=== PATIENT | female | born 1960 | race Caucasian/White ===

== ENCOUNTER 2020-01-10 11:12 | Outpatient (REF) | payer BC, SELFPAY ==
--- NOTE | 2020-01-09 10:30 | PAPFT_PTH ---
PATIENT: Neetu Chino LOC: [facility] U#:[id number] AGE/SX: 59/F ROOM: RE01/10/[address]: Laurie Henderson MD, DC : 1960 BED: DIS: 01/10/2020 SPEC #: [id number] RECD: 01/10/20 12:57 STATUS: DUC REGraciela #: [id number] KAYE: 01/09/20 10:[address]: Laurie Henderson DEPT: [facility] Cytology RECD BY: Margo Goodson Tissues: 1 - CX/ENDOCX FOR PAP SMEARS Procedures: PAP THIN PREP/UVM Screening HPV DNA PROBE Comments: [id number]
== END 2020-01-10 11:32 ==
LOC: LBN 11:12
PROVIDERS: PCP Family Medicine; Visit Provider Family Medicine
DX: Z11.51 Encounter for screening for human papillomavirus (HPV) (principal)
CPT/HCPCS: 88142; 87624

== ENCOUNTER 2023-02-28 04:44 | Outpatient (CLI) | payer BC, SELFPAY ==
[2023-02-28 12:14] LABS: HGB 13.7 g/dL (11.2-15.7); MCH 30.9 pg (27.0-33.0); MCHC 32.6 % (32.0-36.0); MCV 95 fL (80-95); MPV 10.7 fL (8.0-11.0); Platelet Count 227 10^3/uL (130-400); RBC 4.43 10^6/uL (3.93-5.22); RDW 13.8 % (11.7-14.6); RDW-SD 48.7 fL; WBC 4.13 10^3/uL (4.4-10.8)
[2023-02-28 12:43] LABS: ALT 56 U/L (14-59); AST 28 U/L (15-37); Albumin 3.5 g/dL (3.4-5.0); Alkaline Phosphatase 69 U/L (46-116); Anion Gap 11.4 mmol/L (3-11); BUN 17 mg/dL (7-18); Bilirubin, Total 0.4 mg/dL (0.2-1.0); CO2 25.6 mmol/L (21.0-32.0); CREATININE 0.7 mg/dL (0.55-1.02); Calcium 9.8 mg/dL (8.5-10.1); Calculated LDL 218 mg/dL (<100); Chloride 100 mmol/L (98-107); Cholesterol 294 mg/dL (<200); Estimated GFR 98.34 (mL/min/1.73m2); Glucose 97 mg/dL (74-106); HDL Cholesterol 52 mg/dL (40-60); Potassium 3.7 mmol/L (3.5-5.1); Sodium 137 mmol/L (136-145); TSH (W/Ref FT4) 3.45 uIU/mL (0.36-3.74); Total Protein 7.5 g/dL (6.4-8.2); Triglyceride 121 mg/dL (<150)
== END 2023-02-28 04:45 | disposition home or self-care (01) ==
LOC: LOS 04:44
PROVIDERS: PCP Family Medicine; Visit Provider Family Medicine
DX: Z00.00 Encounter for general adult medical examination without abnormal findings (principal)
CPT/HCPCS: 36415; 80053; 80061; 85027; 84443

== ENCOUNTER 2023-03-07 10:20 | Outpatient (REF) | payer BC, SELFPAY ==
--- NOTE | 2023-03-07 09:30 | PAPFT_PTH ---
PATIENT: Neetu Chino LOC: [facility] U#:[id number] AGE/SX: 62/F ROOM: RE03/07/[address]: Laurie Henderson MD, DC : 1960 BED: DIS: 03/07/2023 SPEC #: [id number] RECD: 03/07/23 18:03 STATUS: DUC REGraciela #: [id number] KAYE: 03/07/23 09:[address]: Laurie Henderson DEPT: [facility] Cytology RECD BY: Margo Goodson Tissues: 1 - CX/ENDOCX FOR PAP SMEARS Procedures: PAP THIN PREP/UVM Screening HPV DNA PROBE Comments: [id number]
== END 2023-03-07 10:21 | disposition home or self-care (01) ==
LOC: LBN 10:20
PROVIDERS: PCP Family Medicine; Visit Provider Family Medicine
DX: Z12.4 Encounter for screening for malignant neoplasm of cervix (principal); Z11.51 Encounter for screening for human papillomavirus (HPV)
CPT/HCPCS: 88142; 87624

== ENCOUNTER 2023-05-30 06:53 | Day surgery (SDC) | payer BC, SELFPAY ==
[2023-05-30 07:00] VITALS: BP 132/86; PULSE 79; RESP 18; TEMP 36.5; O2SAT 79
[2023-05-30] MEDS: Lactated Ringers 1,000 ML 80 ML IV (07:24)
--- NOTE | 2023-05-30 07:56 | W.ANESPRE ---
General Info Date of Service Date Performed: 05/30/23 Height: 5 ft 5.5 in Weight: 75.7 kg Body Mass Index (BMI): 27.3 Surgical Procedure: Operation Date: 05/30/23 08:20 Proposed Procedure Side Surgeon p Colonoscopy Kd Orona MD Actual Procedure Side Surgeon p Colonoscopy Not Applicable Kd Orona MD Pre-Op Diagnosis Post-Op Diagnosis SCREENING COLONOSCOPY Meds Allergies and Home Medications Allergies Allergy/AdvReac Type Severity Reaction Status Date / Time cat dander Allergy Mild Unverified 05/30/23 07:10 lactose Allergy Unknown Verified 05/30/23 07:10 prednisone Allergy Unknown Verified 05/30/23 07:10 DUST MITES Allergy Unknown Uncoded 05/30/23 07:10 Home Medication Medication Instructions Recorded fexofenadine 180 mg tablet 180 mg PO DAILY 09/28/22 (Jarod Allergy) bisacodyl 5 mg tablet,delayed 5 mg PO ONCE #4 tabs 05/12/23 release (Dulcolax (bisacodyl)) cetirizine 10 mg capsule (Zyrtec) 10 mg PO DAILY PRN 05/12/23 polyethylene glycol 3350 17 17 g PO ONCE #238 grams 05/12/23 gram/dose oral powder fluticasone propionate 50 2 spray intranasal DAILY #48 grams 05/20/23 mcg/actuation nasal spray,suspension Current Visit Medications: Current Medications Generic Name Dose Route Start Last Admin Trade Name Freq PRN Reason Stop Dose Admin Ringer's Solution 1,000 mls @ 80 mls/hr 05/30/23 06:00 05/30/23 07:24 IV 06/26/23 23:59 80 mls/hr INFUSION KEN Administration IV Miscellaneous Supplies 1 each 05/30/23 06:00 Iv Access IV 06/26/23 23:59 DIRECTED KEN Sodium Chloride 0 ml 05/30/23 06:00 Normal Saline Flush 10 Ml Syr IV 06/26/23 23:59 PRN PRN Sodium Chloride 0 ml 05/30/23 06:00 Normal Saline 10 Ml Vial IJ 06/26/23 23:59 DIRECTED PRN Sterile Water 0 ml 05/30/23 06:00 Water,Injection,Sterile 10 Ml Vial IJ 06/26/23 23:59 DIRECTED PRN PFSH Active Problems Active Problems: Problem Status Onset Code Allergy T78.40XA Encounter for screening colonoscopy Z12.11 Abnormal colonoscopy R93.3 COVID-19 U07.1 Hypertension I10 Annual physical exam Z00.00 Abnormal Pap smear of cervix R87.619 Annual physical exam 10/06/15 Z00.00 Bacterial vaginosis N76.0, B96.89 Breast fibrocystic disorder N60.19 Candidal vulvovaginitis B37.3 Elevated liver function tests 04 R94.5 Generalized abdominal pain R10.84 History of bilateral ligation of fallopian tubes Z98.51 History of tobacco use Z87.891 Hypokalemia E87.6 Increased body mass index R63.8 Ketonuria R82.4 Lipid disorder E78.9 Shoulder pain M25.519 Status post bunionectomy Z98.890 Status post cholecystectomy Z90.49 Vaginal odor 01/02/18 N89.8 Surgical History Surgical History Ligation of fallopian tube (~04/1986) Cholecystectomy 01/13/10 BUNIONECTOMY 03/1992; RIGHT Tobacco Smoking/Tobacco Use Status: Former Tobacco Use Passive smoking exposure: Yes (Ex also smoked) Second hand exposure: Yes Alcohol Alcohol Intake: current Alcohol intake frequency: a few times a week Alcohol type: beer and wine Substance Use Substance use: Never Substance use type: does not use Counseling provided: none Vital Signs and Lab Results Vital Signs Most Recent Vital Signs in EMR: Most Recent Vital Signs Temp Pulse Resp BP Pulse Ox 36.5 C 79 18 132/86 79 L 05/30/23 07:00 05/30/23 07:00 05/30/23 07:00 05/30/23 07:00 05/30/23 07:00 Lab Results Blood Type / Crossmatch: No Data to Display Complete Blood Count: No Data to Display Complete Metabolic Panel: No Data to Display Liver Function Panel: No Data to Display Coagulation Panel: No Data to Display Cardiac Panel: No Data to Display Arterial Blood Gas: No Data to Display Venous Blood Gas: No Data to Display Pancreas Panel: No Data to Display Thyroid Panel: No Data to Display Infectious Disease: No Data to Display Blood Cultures: No Data to Display Toxicology Panel: No Data to Display Anesthesia Assessment and Plan Anesthesia History Personal History: No History of Anesthesia Complications Family History: No Family History of Anesthesia Complications Exercise Tolerance Exercise Tolerance: Metabolic Equivalents>4 Pertinent Negatives Pertinent Negatives: No Symptoms of GERD, No Major Cardiovascular Symptoms or Complaints, No Major Pulmonary Symptoms or Complaints and No History of CVA/TIA Cardiac & Pulmonary Exam Cardiac Exam: Normal S1/S2 Heart Sounds Pulmonary Exam: Clear Bilateral Breath Sounds Implantable Cardiac Device Does patient have a Pacemaker or an ICD?: No Airway Exam Known Difficult Airway: No Mallampati Class: 1 Mouth Opening: Normal (> 3cm) Thyromental Distance: Greater than 3 cm Neck Range of Motion: Full ROM Neck Circumference: Normal Teeth Condition: Normal Dentition ASA Classification ASA Score: ASA 2 Emergency Case?: No NPO Status NPO Status: NPO Clears >2 hours, Solids >8 hours Anesthesia Plan Resuscitation Status: Full Code Anesthesia Technique: General Anesthesia Airway Planned: Natural Airway Monitors Used: Standard Monitors Preoperative Comments:: Patient with bilateral upper extremity hives. Probable allergic reaction to her cat which is slowly getting better (ceterizine, jarod, fluticasone for this all taken today). Dr. Orona aware and to proceed.
[2023-05-30 08:10] VITALS: BMI 27.3
--- NOTE | 2023-05-30 08:25 | BOWEL_PTH ---
PATIENT: Neetu Chino LOC: [facility] U#:[id number] AGE/SX: 62/F ROOM: RE05/30/[address]: Kd Orona : 1960 BED: DIS: 05/30/2023 SPEC #: [id number] RECD: 05/30/23 12:56 STATUS: DUC RE #: [id number] KAYE: 05/30/23 08:[address]: Kd Orona DEPT: Surgical Specimen RECD BY: Margo Goodson ENTERED: 05/30/23 12:57 SP TYPE: Bowel OTHR DR: Laurie Henderson MD, DC Tissues: 1 - BIOPSY BOWEL Procedures: GROSS AND MICRO LEVEL 4 Comments: [id number]
[2023-05-30 08:40] VITALS: BP 101/73; PULSE 82; RESP 16; TEMP 36.4; O2SAT 97
--- NOTE | 2023-05-30 08:40 | W.COLOREPORT ---
Date of service: 05/30/23 Time of Service: 08:40 Colonoscopy Report Procedure Description: PROCEDURES PERFORMED: 1. Colonoscopy with cold forceps polypectomy x1 PREOPERATIVE DIAGNOSIS: Surveillance colonoscopy POSTOPERATIVE DIAGNOSIS: Colon polyps, grade 1 internal hemorrhoids SURGEON: Rashmi Orona MD INDICATION for procedure: The patient is a 62-year-old woman due for surveillance colonoscopy. No symptoms. No family history of colon cancer. No findings on prior colonoscopies. FINDINGS: In the cecum a small 2-3 mm sessile polyp was removed with cold forceps technique directly next to the appendiceal orifice. No other polyps were seen. No diverticular disease noted. Minimal/grade 1 internal hemorrhoids noted. SURVEILLANCE interval/FOLLOW-UP: 3-10 years. If sessile serrated or villous histology then 3 years, otherwise 7 to 10 years. EBL: Minimal COMPLICATIONS: None QUALITY of prep: Excellent Procedure in detail: The patient gave written consent and was in agreement with the indications, the potential risks as well as the benefits of the procedure. He was taken to the endoscopy suite and laid in the left lateral decubitus position. A timeout was performed and anesthesia was administered which was tolerated well. I started the procedure. Digital rectal and visual examination was performed and grossly within normal limits. A well-lubricated flexible colonoscope was then introduced and passed without any notable difficulty all the way to the cecum identified by the ileocecal valve and the appendiceal orifice. The scope was then slowly withdrawn with the above-noted findings. The patient tolerated the procedure well and was taken to the PACU in hemodynamically stable condition.
--- NOTE | 2023-05-30 08:43 | W.PM.DSUDISC ---
Date of service: 05/30/23 Time of Service: 08:43 Discharge Plan Disposition Patient Disposition: Home Condition: Good Discharge Details Attending Provider: Kd Orona Primary Care Provider: Laurie Henderson Home Meds and New Rx's Prescriptions: No Action fexofenadine [Milly Allergy] 180 mg tablet 180 mg PO DAILY Zyrtec 10 mg capsule 10 mg PO DAILY PRN bisacodyl [Dulcolax (bisacodyl)] 5 mg tablet,delayed release (DR/EC) 5 mg PO ONCE Qty: 4 0RF Rx Instructions: Take per colonoscopy instructions provided by ordering providers office polyethylene glycol 3350 17 gram/dose powder 17 g PO ONCE Qty: 238 0RF Rx Instructions: Take per colonoscopy instructions provided by ordering providers office fluticasone propionate 50 mcg/actuation spray,suspension 2 spray intranasal DAILY Qty: 48 5RF Rx Instructions: administer into each nostril Discharge Instructions Additional Instructions: FINDINGS: Your colon and rectum appear very healthy. A small polyp was found today and removed. It is nothing to worry about. Your next colonoscopy will probably need to be done in 7 to 10 years also. Stand Alone Forms: Colonoscopy Post Instructions Activity:: Activity as Tolerated Diet:: As Tolerated
--- NOTE | 2023-05-30 08:46 | W.ANESPOSTOP ---
Postoperative Evaluation Date, Time and Location Date Performed: 05/30/23 Time Performed: 08:47 Patient Location: Day Surgery Unit Vital Signs Most Recent Imported Vital Signs: Most Recent Vital Signs Temp Pulse Resp BP Pulse Ox 36.5 C 79 18 132/86 79 L 05/30/23 07:00 05/30/23 07:00 05/30/23 07:00 05/30/23 07:00 05/30/23 07:00 Assessment Mental Status: Awake (Alert & Oriented to Patient Baseline) Airway and Respiratory Function: Patent airway with normal (patient baseline) respiratory exam Cardiovascular Function: Hemodynamically Stable Hydration Status: Adequately Hydrated Nausea & Vomiting: No Nausea or Vomiting Pain: Pt. Denies Any Pain Peripheral Nerve Block: Patient did not receive a nerve block
[2023-05-30 09:10] VITALS: BP 127/71; PULSE 65; RESP 16; TEMP 36.2; O2SAT 100
== END 2023-05-30 09:30 | disposition home or self-care (01) ==
PROVIDERS: PCP Family Medicine; Visit Provider Student in an Organized Health Care Education/Training Program
PROC: 0DJD8ZZ Inspection of Lower Intestinal Tract, Via Natural or Artificial Opening Endoscopic (ICD-10-PCS; CPT 45378; principal; 2023-05-30 08:15)
DX: Z12.11 Encounter for screening for malignant neoplasm of colon (principal); D12.0 Benign neoplasm of cecum; K64.0 First degree hemorrhoids; I10 Essential (primary) hypertension; Z87.891 Personal history of nicotine dependence
CPT/HCPCS: 45380; 00123; 88305; J2001

== ENCOUNTER 2024-07-22 19:17 | Observation (INO) | payer BC, SELFPAY ==
[2024-07-22] VITALS (42 sets, daily range): BP systolic 100–135; BP diastolic 68–90; PULSE 68–106; RESP 11–26; TEMP 36.1; O2SAT 91–100
--- NOTE | 2024-07-22 19:15 | RT.EKG_ITS ---
APPROVED REPORT Exam: Resting ECG Reason for Exam: syncope Patient Location: E HR:88 bpm ECG Measurements Heart Rate 88 AXIS RI 122 P 52 QRSd 85 QRS 37 QT 370 T 34 QTc 449 Conclusion Sinus rhythm...normal P axis, V-rate 60- [address] segment or T wave abnormalities to suggest occlusive AL minimal voltage lead III, repeat requested
--- NOTE | 2024-07-22 19:30 | RT.EKG_ITS ---
APPROVED REPORT Exam: Resting ECG Reason for Exam: syncope Patient Location: E HR:90 bpm ECG Measurements Heart Rate 90 AXIS RI 122 P 42 QRSd 85 QRS 37 QT 370 T 34 QTc 453 Conclusion Sinus rhythm...normal P axis, V-rate 60- [address] segment or T wave abnormalities to suggest occlusive [place] minimal voltage lead III, repeat requested
--- NOTE | 2024-07-22 19:30 | RT.EKG_ITS ---
APPROVED REPORT Exam: Resting ECG Reason for Exam: dizzy Patient Location: E HR:79 bpm ECG Measurements Heart Rate 79 AXIS MS 125 P 47 QRSd 91 QRS 49 QT 382 T 33 QTc 438 Conclusion Sinus rhythm...normal P axis, V-rate 60- [address] segment or T wave abnormalities to suggest occlusive [place]
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
[2024-07-22 20:27] LABS: Abs Immature Grans 0.02 10^3/uL (0.0-0.06); Absolute Basophil Count 0.04 10^3/uL (0.0-0.2); Absolute Eosinophil Count 0.09 10^3/uL (0.0-0.7); Absolute Lymphocyte Count 1.36 10^3/uL (1.2-3.4); Absolute Monocyte Count 0.49 10^3/uL (0.1-0.8); Absolute Neutrophil Count 4.03 10^3/uL (1.2-6.7); Basophils % 0.7 %; Eosinophils % 1.5 %; HGB 15.2 g/dL (11.2-15.7); Immature Grans % 0.3 %; Lymphocytes % 22.6 %; MCH 30.9 pg (27.0-33.0); MCHC 32.3 % (32.0-36.0); MCV 96 fL (80-95); MPV 10.3 fL (8.0-11.0); Monocytes % 8.1 %; Neutrophils % 66.8 %; Platelet Count 180 10^3/uL (130-400); RBC 4.92 10^6/uL (3.93-5.22); RDW 13.9 % (11.7-14.6); RDW-SD 49.6 fL; WBC 6.03 10^3/uL (4.4-10.8)
--- NOTE | 2024-07-22 20:28 | DI.CT_ITS ---
Exam(s) CT CHEST PE ABD PELVIS W EXAM: CT CHEST PE ABD PELVIS W CLINICAL HISTORY: syncope, elevated dimer. TECHNIQUE: Imaging Protocol: Axial CT angiography was performed with multi-slice acquisition and mu lti-planar and/or 3D reconstructions. Computer aided detection (CAD) was utilized. CONTRAST MATERIAL: Intravenous: Omnipaque 350 Contrast volume:75 ml COMPARISON: No exams were available for comparison FINDINGS: CHEST: Pulmonary Arteries: No evidence of filling defects to suggest pulmonary emboli. Tracheobronchial tree: Mild bronchial wall thickening, greatest at greater in the lower lobes. Mild left lower lobe view consist plugging. No bronchiectasis. Mediastinum and Shira: No dominant adenopathy or fluid collection. Pulmonary parenchyma: No consolidation or dominant measurable mass. Pleura: No effusion. No pneumothorax. Heart: The heart is notdilated. No coronary artery calcifications are seen. Aorta: Thoracic aorta non-dilated. Bones: Unremarkable for age. Tubes, Catheters, and Lines: None. Soft tissues: Unremarkable. ABDOMEN and PELVIS: Liver: Normal size. Normal density. No suspicious measurable mass. Portal, Superior Mesenteric, and Splenic Veins: Unremarkable. Gallbladder and Biliary Tract: Cholecystectomy. No biliary dilatation. Pancreas: Normal density, no abnormal calcifications or inflammatory process. Spleen: Normal. Adrenals: No masses seen. Kidneys: Normal size, contour and axis. No radiodense stones. No obstructive uropathy. No masses seen . Vasculature: Abdominal aorta non-dilated. Bowel: No obstruction or bowel wall thickening. The appendix is mildly dilated and contain several a ppendicoliths. Mild stranding in the surrounding fat consistent with acute appendicitis. No perfora tion or abscess. Peritoneal Cavity: No ascites, collection or mesenteric inflammatory response. Lymph Nodes: Within normal limits. Soft Tissues: Unremarkable. Bladder: Symmetric distention, no gross wall thickening. Reproductive Organs: Unremarkable as visualized. Bones: Unremarkable for age.. IMPRESSION: 1. No evidence of pulmonary embolism. Mild bronchial wall thickening. Mild mucous plugging in the le ft lower lobe. No infiltrates. 2. Acute appendicitis. The appendix contains several appendicoliths. RADIATION DOSE DELIVERED: Total DLP DATA REPOSITORY: All CT scans at this facility are submitted to the National Radiology Data Registry (NRDR) Dose Index Registry (DIR) with the [employer] (ACR). RADIATION OPTIMIZATION: All CT scans at this facility use at least one of these dose optimization te chniques: automated exposure control; mA and/or kV adjustment per patient size (includes targeted exa ms where dose is matched to clinical indication); or iterative reconstruction.
[2024-07-22] MEDS: Ondansetron 4 MG/2 ML VIAL IVP (20:29)
[2024-07-22 20:39] LABS: ALT 135 U/L (14-59); AST 81 U/L (15-37); Alkaline Phosphatase 70 U/L (46-116); Anion Gap 11.1 mmol/L (3-11); BUN 27 mg/dL (7-18); CO2 27.9 mmol/L (21.0-32.0); Calcium 9.1 mg/dL (8.5-10.1); Chloride 101 mmol/L (98-107); Estimated GFR 72.28 (mL/min/1.73m2); Glucose 106 mg/dL (74-106); Magnesium 1.9 mg/dL (1.8-2.4); NT-proBNP 37 pg/mL (<300); Potassium 3.5 mmol/L (3.5-5.1); Sodium 140 mmol/L (136-145); Total Protein 8.3 g/dL (6.4-8.2); Troponin I 6 ng/L (<or=51)
[2024-07-22] MEDS: Omnipaque 350 MG/ML 100 ML BTL IJ (20:44)
[2024-07-22] MEDS: Normal Saline - Diluent 50 ML VIAL IJ (20:45)
[2024-07-22 20:46] LABS: D-Dimer 682 ng/mlFEU (<500)
[2024-07-22] MEDS: Normal Saline Flush 10 ML SYR IJ (20:46)
--- NOTE | 2024-07-22 21:39 | DI.VRAD_ITS ---
Addendum created by Tatiana Bal MD on 07/22/2024 9:39:20 PM EST: I discussed case findings with KASSI DA SILVA 07/22/2024 9:38 PM EST. Initial report created on 07/22/2024 9:38:24 PM EST: PROCEDURE INFORMATION: Exam: CTA Chest With Contrast Exam date and time: 07/22/2024 9:04 PM Age: 63 years old Clinical indication: Syncope, elevated ddimer; Epigastric pain, diarrhea TECHNIQUE: Imaging protocol: Computed tomographic angiography of the chest with contrast. Exam focused on the arteries. 3D rendering (Not supervised by radiologist): MIP and/or 3D reconstructed images were created by the technologist. COMPARISON: No relevant prior studies available. FINDINGS: Pulmonary arteries: Normal. No pulmonary emboli. Aorta: Unremarkable. No aortic aneurysm. No aortic dissection. Lungs: There is mild left lower lobe bronchial wall thickening. Pleural spaces: Unremarkable. No pneumothorax. No pleural effusion. Heart: Unremarkable. No cardiomegaly. No pericardial effusion. Lymph nodes: Unremarkable. No enlarged lymph nodes. Bones/joints: Unremarkable. No acute fracture. Soft tissues: Unremarkable. IMPRESSION: 1. No evidence for pulmonary embolus. 2. Left lower lobe bronchitis. PROCEDURE INFORMATION: Exam: CT Abdomen And Pelvis With Contrast Exam date and time: 07/22/2024 9:04 PM Age: 63 years old Clinical indication: Syncope, elevated ddimer; Epigastric pain, diarrhea TECHNIQUE: Imaging protocol: Computed tomography of the abdomen and pelvis with contrast. COMPARISON: No relevant prior studies available. FINDINGS: Liver: Normal. No mass. Gallbladder and biliary ducts: Status post cholecystectomy. Pancreas: Normal. No ductal dilation. Spleen: Normal. No splenomegaly. Adrenal glands: Normal. No mass. Kidneys and ureters: Normal. No hydronephrosis. Stomach and bowel: Unremarkable. No obstruction. No mucosal thickening. Appendix: There are several appendicoliths within the appendix which is abnormally thickened measuring up to 1 cm in diameter. There is mild to moderate adjacent soft tissue stranding. Intraperitoneal space: Unremarkable. No free air. No significant fluid collection. Vasculature: Unremarkable. No abdominal aortic aneurysm. Lymph nodes: Unremarkable. No enlarged lymph nodes. Urinary bladder: Unremarkable as visualized. Reproductive: Unremarkable as visualized. Bones/joints: Unremarkable. No acute fracture. Soft tissues: See Appendix finding. IMPRESSION: Acute appendicitis. No evidence for rupture. Dictated and Authenticated by: Tatiana Bal MD. Orderin Carlita Garza MD
[2024-07-22] MEDS: Normal Saline 1,000 ML 1000 ML IV (21:46)
[2024-07-22 21:56] LABS: Troponin I 6 ng/L (<or=51)
[2024-07-22] MEDS: MORPHine 10 MG/ML VIAL 2 MG IVP (22:24)
[2024-07-22] MEDS: ACETAMINOPHEN 1,000 MG/100 ML BAG 400 MG IVPB (22:24)
[2024-07-22 22:49] LABS: Lipase 86 U/L (<78)
--- NOTE | 2024-07-22 23:43 | W.PC.ACHO ---
Registration Status: Primary Language: Preferred Language: ED Information & Data Chief Complaint [id number] 07/22/24 20:05 Triage Note Cough, JAIMES, earache, fever, 07/22/24 19:26 started on Tuesday. Not vomiting, having nausea, severe diarrhea. reports she was going to come to the ED for eval, was showering before coming up and passed out. Reported she was out. helped her up and she went out again. Has never experienced this before. Pt does not feel like she is injured, currently alert and oriented . Still experiencing nausea. Not on blood thinners. Dull pain in epigastric area/ radiates to back a bit, 7/10 feels like a sore muscle that just wont go away. (Last Updated 06/01/23 @ 14:29 by Ruthann Paulino) History of colonoscopy (~05/2023) Ligation of fallopian tube (~04/1986) Cholecystectomy BUNIONECTOMY Most Recent Vital Signs Temperature 36.1 C L 07/22/24 19:26 Temperature Source Oral 07/22/24 19:26 Pulse 76 07/22/24 23:20 Pulse 76 07/22/24 23:20 Respiratory Rate 19 07/22/24 23:20 Respiratory Effort Normal, Non-Labored 07/22/24 20:30 Respiratory Depth Normal 07/22/24 20:30 Respiratory Pattern Normal 07/22/24 20:30 Blood Pressure 119/77 07/22/24 23:00 Blood Pressure Mean 90 07/22/24 23:00 Blood Pressure Position Sitting 07/22/24 19:26 Pulse Oximetry 94 07/22/24 23:20 Oxygen Delivery Method Room Air 07/22/24 19:26 Oxygen Flow Rate 0 07/22/24 19:26 Pain Level 7 07/22/24 19:26 Allergies cat dander Allergy (Mild, Verified 07/22/24 19:23) rhinitis Congestion, sneezing lactose Allergy (Unknown, Verified 07/22/24 19:23) GI upset/Diarrhea prednisone Allergy (Unknown, Verified 07/22/24 19:23) Chest pressure My chest felt like it was going to blow up DUST MITES Allergy (Unknown, Uncoded 07/22/24 19:23) rhinitis Active Medications Generic Name Dose Route Start Last Admin Trade Name Freq PRN Reason Stop Dose Admin Iohexol 100 ml 07/22/24 20:45 07/22/24 20:44 Omnipaque 350 Mg/Ml 100 Ml Btl IJ 08/21/24 23:59 75 ml DIRECTED KEN Administration Morphine Sulfate 2 mg 07/22/24 22:06 07/22/24 22:24 Morphine 10 Mg/Ml Vial IVP 2 mg DIRECTED PRN Administration Sodium Chloride 50 ml 07/22/24 20:45 07/22/24 20:45 Normal Saline - Diluent 50 Ml Vial IJ 50 ml .FOR DI USE KEN Administration Sodium Chloride 0 ml 07/22/24 20:46 07/22/24 20:46 Normal Saline Flush 10 Ml Syr IJ 10 ml PRN PRN Administration IV IV Catheter Type [Left Diffusics Antecubital] IV Catheter Gauge [Left 20 Antecubital] Diagnostics 07/22/24 07/22/24 07/22/24 Range/Units 22:20 21:21 20:10 WBC 6.03 (4.4-10.8) 10^3/uL RBC 4.92 (3.93-5.22) 10^6/uL Hgb 15.2 (11.2-15.7) g/dL Hct 47.0 H (36.0-46.0) % MCV 96 H (80-95) fL MCH 30.9 (27.0-33.0) pg MCHC 32.3 (32.0-36.0) % RDW 13.9 (11.7-14.6) % Plt Count 180 (130-400) 10^3/uL MPV 10.3 (8.0-11.0) fL Immature Gran % 0.3 % Neutrophils % 66.8 % Lymphocytes % 22.6 % Monocytes % 8.1 % Eosinophils % 1.5 % Basophils % 0.7 % Nucleated RBC % 0.0 (0.0-0.3) % Absolute Neutrophils 4.03 (1.2-6.7) 10^3/uL Absolute Lymphocytes 1.36 (1.2-3.4) 10^3/uL Absolute Monocytes 0.49 (0.1-0.8) 10^3/uL Absolute Eosinophils 0.09 (0.0-0.7) 10^3/uL Absolute Basophils 0.04 (0.0-0.2) 10^3/uL D-Dimer 682 H (<500) ng/mlFEU VBG Lactate 1.0 (<or=2.0) mmol/L Sodium 140 (136-145) mmol/L Potassium 3.5 (3.5-5.1) mmol/L Chloride 101 (98-107) mmol/L Carbon Dioxide 27.9 (21.0-32.0) mmol/L Anion Gap 11.1 H (3-11) mmol/L BUN 27 H (7-18) mg/dL Creatinine 0.9 (0.55-1.02) mg/dL Est GFR (CKD-EPI 2020) 72.28 (mL/min/1.73m2) Glucose 106 (74-106) mg/dL Calcium 9.1 (8.5-10.1) mg/dL Magnesium 1.9 (1.8-2.4) mg/dL Total Bilirubin 0.30 (0.2-1.0) mg/dL AST 81 H (15-37) U/L ALT 135 H (14-59) U/L Alkaline Phosphatase 70 (46-116) U/L Troponin I 6 6 (<or=51) ng/L NT-Pro-B Natriuret Pep 37 (<300) pg/mL Total Protein 8.3 H (6.4-8.2) g/dL Albumin 4.0 (3.4-5.0) g/dL Lipase 86 H (<78) U/L Folon-nc-Dbzz Documentation Fingerstick Glucose Start: 07/22/24 19:54 Freq: Status: Active Protocol: Activity Type Activity Date Activity User E-sign Co-sign Detail Recorded Client Recorded Date Recorded By Document 07/22/24 19:53 BKG DAEMON(10) [id number] 07/22/24 19:54 BKG DAEMON(10) Intake and Output - 24 Hour Total 07/22/24 19:17 thru 07/22/24 22:28 Intake Total 1100 Balance 1100 Weight 73.482 kg Intake: IV 1100 Falls Risk Assessment History of Falls No History 07/22/24 19:56 Contributing Factors No Factors 07/22/24 19:56 Ambulatory Aids Independent 07/22/24 19:56 Tubes/Lines None 07/22/24 19:56 Gait Evaluation No gait disturbance 07/22/24 19:56 Cognition No cognitive impairment 07/22/24 19:56 Fall Total Score 0 07/22/24 19:56 Level of Risk Standard/Low Risk 07/22/24 19:56 Problems (Last Reviewed 05/30/23 @ 07:13 by Laura Thomason) Syncope (Chronic) Orthostasis (Acute) Acute appendicitis (Acute) v v v v v v v v v Sending and/or Receiving Nurses: Please use comment section below to note any information pertinent to the patient hand-off not included above. Information / Comments: No further questions. Report received from: ROBYN Bright
[2024-07-23] VITALS (30 sets, daily range): BP systolic 101–124; BP diastolic 55–75; PULSE 62–78; RESP 15–20; TEMP 36.2–37; O2SAT 96–99; BMI 27.8
[2024-07-23] MEDS: Enoxaparin 40 MG/0.4 ML SYR SC (00:31)
[2024-07-23] MEDS: PIPERACILLIN/TAZO 3.375 GM in Normal Saline 50 ML IVPB ×4 (00:32→20:14)
[2024-07-23] MEDS: Lactated Ringers 1,000 ML 75 ML IV ×2 (00:32→11:20)
[2024-07-23] MEDS: Normal Saline Flush 10 ML SYR IVP ×4 (00:33→20:14)
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
--- NOTE | 2024-07-23 10:21 | ANES.PREOP_ITS ---
General Info Date of Service Date Performed: 07/23/24 Height: 5 ft 5 in Weight: 75.7 kg Body Mass Index (BMI): 27.8 Surgical Procedure: Operation Date: 07/23/24 11:10 Proposed Procedure Side Surgeon p Appendectomy Laparoscopic Karol Brizuela MD Meds Allergies and Home Medications Allergies Allergy/AdvReac Type Severity Reaction Status Date / Time cat dander Allergy Mild rhinitis Verified 07/22/24 19:23 lactose Allergy Unknown GI Verified 07/22/24 19:23 upset/Diarrhea prednisone Allergy Unknown Chest Verified 07/22/24 19:23 pressure DUST MITES Allergy Unknown rhinitis Uncoded 07/22/24 19:23 Home Medication Medication Instructions Recorded calcium 315 mg (as 1 tab PO BID 04/05/24 citrate)-vitamin D3 5 mcg (200 unit) tablet (Calcium Citrate + D) cholecalciferol (vitamin D3) 125 125 mcg PO DAILY 04/05/24 mcg (5,000 unit) capsule cyanocobalamin (vitamin B-12) 500 500 mcg PO DAILY 04/05/24 mcg tablet magnesium oxide 500 mg capsule 500 mg PO BID 04/05/24 [id number] 8 mg-folic 400 1 tab PO DAILY 04/05/24 mcg-K 50 mcg-lutein 300 mcg tablet (Centrum Silver Women) potassium gluconate 600 mg (99 mg) 600 mg PO DAILY 04/05/24 tablet Current Visit Medications: Current Medications Generic Name Dose Route Start Last Admin Trade Name Freq PRN Reason Stop Dose Admin Enoxaparin Sodium 40 mg 07/23/24 00:04 07/23/24 00:31 Enoxaparin 40 Mg/0.4 Ml Syr SC 40 mg Q24H KEN Administration Ringer's Solution 1,000 mls @ 75 mls/hr 07/23/24 00:04 07/23/24 00:32 IV 75 mls/hr INFUSION KEN Administration Piperacillin Sod/Tazobactam 50 mls @ 100 mls/hr 07/23/24 00:04 07/23/24 10:09 Sod 3.375 gm/ Sodium Chloride IVPB Infused Q6H KEN Infusion Acetaminophen 1,000 mg in 100 mls @ 400 mls/hr 07/23/24 00:04 Ofirmev IVPB Q6H PRN Abdominal Pain IV Miscellaneous Supplies 1 each 07/23/24 00:04 Iv Access IV DIRECTED KEN Morphine Sulfate 2 mg 07/23/24 00:04 Morphine 2 Mg/Ml Syr IVP Q1H PRN PRN Ondansetron HCl 4 mg 07/23/24 00:04 Ondansetron 4 Mg/2 Ml Vial IVP Q4H PRN PRN Sodium Chloride 0 ml 07/23/24 00:04 07/23/24 00:33 Normal Saline Flush 10 Ml Syr IVP 10 ml PRN PRN Administration Sodium Chloride 0 ml 07/23/24 08:30 07/23/24 08:25 Normal Saline Flush 10 Ml Syr IVP 20 ml BID KEN Administration Sodium Chloride 0 ml 07/23/24 00:04 Normal Saline 10 Ml Vial IJ DIRECTED PRN PFSH Active Problems Active Problems: Problem Status Onset Code Syncope Chronic R55 Orthostasis Acute I95.1 Acute appendicitis Acute K35.80 Tubular adenoma Acute ~05/2023 D36.9 Allergy Acute T78.40XA Encounter for screening colonoscopy Acute Z12.11 Abnormal colonoscopy Acute R93.3 COVID-19 Acute U07.1 Hypertension Chronic I10 Annual physical exam Acute Z00.00 Abnormal Pap smear of cervix Acute R87.619 Annual physical exam Acute 10/06/15 Z00.00 Bacterial vaginosis Acute N76.0, B96.89 Breast fibrocystic disorder Acute N60.19 Candidal vulvovaginitis Acute B37.3 Elevated liver function tests Acute 09/16/14 R94.5 Generalized abdominal pain Acute R10.84 History of bilateral ligation of fallopian tubes Acute Z98.51 History of tobacco use Acute Z87.891 Hypokalemia Acute E87.6 Increased body mass index Acute R63.8 Ketonuria Acute R82.4 Lipid disorder Acute E78.9 Shoulder pain Acute M25.519 Status post bunionectomy Acute Z98.890 Status post cholecystectomy Acute Z90.49 Vaginal odor Acute 01/02/18 N89.8 Surgical History Surgical History (Updated 06/01/23 @ 14:29 by Ruthann Paulino) History of colonoscopy (~05/2023) biopsies taken Ligation of fallopian tube (~04/1986) Cholecystectomy 01/13/10 BUNIONECTOMY 03/1992; RIGHT Tobacco Smoking/Tobacco Use Status: Former Tobacco Use Passive smoking exposure: Yes (Ex also smoked) Second hand exposure: Yes Alcohol Alcohol Intake: current Alcohol intake frequency: a few times a week Alcohol type: beer Substance Use Substance use: Never Substance use type: does not use Counseling provided: none Vital Signs and Lab Results Vital Signs Most Recent Vital Signs in EMR: Most Recent Vital Signs Temp Pulse Resp BP Pulse Ox 37.0 C 75 16 101/61 96 07/23/24 08:01 07/23/24 08:01 07/23/24 08:01 07/23/24 08:01 07/23/24 08:01 Point of Care Results Point of Care Results: Finger Stick Blood Glucose 85 07/22/24 19:53 Lab Results 07/22/24 20:10 07/22/24 20:10 Blood Type / Crossmatch: 2 No Data to Display Complete Blood Count: 2 White Blood Count 6.03 10^3/uL (4.4-10.8) 07/22/24 20:10 Red Blood Count 4.92 10^6/uL (3.93-5.22) 07/22/24 20:10 Hemoglobin 15.2 g/dL (11.2-15.7) 07/22/24 20:10 Hematocrit 47.0 % (36.0-46.0) H 07/22/24 20:10 Platelet Count 180 10^3/uL (130-400) 07/22/24 20:10 Venous Blood Lactate 1.0 mmol/L (<or=2.0) 07/22/24 22:20 Complete Metabolic Panel: 2 Sodium 140 mmol/L (136-145) 07/22/24 20:10 Potassium 3.5 mmol/L (3.5-5.1) 07/22/24 20:10 Chloride 101 mmol/L (98-107) 07/22/24 20:10 Carbon Dioxide 27.9 mmol/L (21.0-32.0) 07/22/24 20:10 BUN 27 mg/dL (7-18) H 07/22/24 20:10 Creatinine 0.9 mg/dL (0.55-1.02) 07/22/24 20:10 Est GFR (CKD-EPI 2020) 72.28 (mL/min/1.73m2) 07/22/24 20:10 Magnesium 1.9 mg/dL (1.8-2.4) 07/22/24 20:10 Calcium 9.1 mg/dL (8.5-10.1) 07/22/24 20:10 Albumin 4.0 g/dL (3.4-5.0) 07/22/24 20:10 Glucose 106 mg/dL (74-106) 07/22/24 20:10 Liver Function Panel: 2 Alanine Aminotransferase (ALT/SGPT) 135 U/L (14-59) H 07/22/24 20:10 Aspartate Amino Transf (AST/SGOT) 81 U/L (15-37) H 07/22/24 20: 10 Coagulation Panel: 2 D-Dimer 682 ng/mlFEU (<500) H 07/22/24 20:10 Cardiac Panel: 2 Troponin I 6 ng/L (<or=51) 07/22/24 NT-Pro-B Natriuret Pep 37 pg/mL (<300) 07/22/24 Arterial Blood Gas: 2 No Data to Display Venous Blood Gas: 2 No Data to Display Pancreas Panel: 2 Lipase 86 U/L (<78) H 07/22/24 22:20 Thyroid Panel: 2 No Data to Display Infectious Disease: 2 No Data to Display Blood Cultures: 2 No Data to Display Toxicology Panel: 2 No Data to Display Imaging and Studies Imaging and Studies Study information below may be from another EMR and interpreted by another provider. Please see original notes in EMR for more complete details. EKG Summary: 07/22/24: Exam: Resting ECG Reason for Exam: syncope Patient Location: E HR:90 bpm ECG Measurements Heart Rate 90 AXIS DC 122 P 42 QRSd 85 QRS 37 QT 370 T34 QTc 453 Conclusion Sinus rhythm...normal P axis, V-rate 60- [address] segment or T wave abnormalities to suggest occlusive CA minimal voltage lead III, repeat requested Anesthesia Assessment and Plan Anesthesia History Personal History: No History of Anesthesia Complications Family History: No Family History of Anesthesia Complications Exercise Tolerance Exercise Tolerance: Metabolic Equivalents>4 Cardiac & Pulmonary Exam Cardiac Exam: Normal S1/S2 Heart Sounds Pulmonary Exam: Wheezing Present (expiratory) Implantable Cardiac Device Does patient have a Pacemaker or an ICD?: No Airway Exam Known Difficult Airway: No Mallampati Class: 1 Mouth Opening: Normal (> 3cm) Thyromental Distance: Greater than 3 cm Neck Range of Motion: Full ROM Neck Circumference: Normal Teeth Condition: Normal Dentition ASA Classification ASA Score: ASA 2 Emergency Case?: No NPO Status NPO Status: NPO Clears >2 hours, Solids >8 hours Anesthesia Plan Resuscitation Status: Full Code Anesthesia Technique: General Anesthesia Airway Planned: Endotracheal Tube Monitors Used: Standard Monitors and SedLine
[2024-07-23] MEDS: Bupivacaine 0.25% Pres-Free 30 ML VIAL (12:18)
--- NOTE | 2024-07-23 12:31 | W.PM.OP ---
Operative Note Operative Note Refer to Anesthesia Record Procedure Description: PREOPERATIVE DIAGNOSIS: Acute appendicitis POSTOPERATIVE DIAGNOSIS: Acute nonperforated appendicitis SURGEON: Karol Brizuela MD ARMATURE INSPECTOR: None NAME OF OPERATION: Laparoscopic appendectomy INDICATIONS: pre op diagnosis of acute appendicitis OPERATIVE FINDINGS: acute nonperforated appendicitis OPERATIVE PROCEDURE: The patient was administered satisfactory general LMA anesthesia and placed on the operating table in the supine position with the left arm tucked at the side. A timeout was observed noting the patient's identity, the goal of the procedure and the preoperative antibiotics given on schedule. The abdomen was prepped with ChloraPrep and draped in a sterile fashion. Between clips. A supraumbilical incision was made through which the fascia was divided under direct vision. Stay sutures of 0 Vicryl were placed. The peritoneum was pierced and Chan trocar inserted and pneumoperitoneum to 15 mmHg was established. Two 5 mm ports were placed under direct vision into the lower abdomen. The anatomy in the right lower quadrant was viewed and is documented above. Adhesions distorting the mesoappendix and appendix were divided between clips. After assuring hemostasis the appendix was divided at its junction with the cecum with a purple load of the linear endoscopic stapler. The appendix was placed into an EndoCatch bag and removed through the umbilical port site. The appendix was sent for pathology. The Chan was replaced and pneumoperitoneum resumed. Irrigations were performed in the periappendiceal area as well as the pelvis. Patient was then returned to the flat position and all the excess effluent was suctioned from the abdomen. The ports were removed under direct vision. There was good hemostasis at each site. Finally, the Chan was removed resolving the pneumoperitoneum. The fascia at the umbilical incision was closed with 1 [id number] 0 Vicryl suture(s). After irrigating the wounds and infiltrating local 0.5% Marcaine, the skin edges were reapproximated with subcuticular 4-0 Monocryl sutures. Gauze and Band-Aid dressings were placed. Patient was returned to the recovery room in stable condition. Sponge and instrument counts were correct. Date of Procedure: 07/23/24
--- NOTE | 2024-07-23 13:09 | W.ANESPOSTOP ---
Postoperative Evaluation Date, Time and Location Date Performed: 07/23/24 Time Performed: 13:09 Patient Location: PACU Vital Signs Most Recent Imported Vital Signs: Most Recent Vital Signs Temp Pulse Resp BP Pulse Ox 36.8 C 62 20 124/66 98 07/23/24 13:03 07/23/24 13:06 07/23/24 13:06 07/23/24 13:06 07/23/24 13:06 Pain Score Most Recent Pain Score: Most Recent Pain Score Pain Level [Mid Abdomen] 0 07/23/24 08:38 Pain Level 0 07/23/24 13:03 Assessment Mental Status: Awake (Alert & Oriented to Patient Baseline) Airway and Respiratory Function: Patent airway with normal (patient baseline) respiratory exam Cardiovascular Function: Hemodynamically Stable Hydration Status: Adequately Hydrated Nausea & Vomiting: No Nausea or Vomiting Pain: Pt. Denies Any Pain Peripheral Nerve Block: Patient did not receive a nerve block
[2024-07-24 06:42] LABS: HCT 37.3 % (36.0-46.0); HGB 12.2 g/dL (11.2-15.7); MCH 30.9 pg (27.0-33.0); MCHC 32.7 % (32.0-36.0); MCV 94 fL (80-95); MPV 10.6 fL (8.0-11.0); Platelet Count 128 10^3/uL (130-400); RBC 3.95 10^6/uL (3.93-5.22); RDW 13.7 % (11.7-14.6); RDW-SD 47.9 fL; WBC 4.13 10^3/uL (4.4-10.8)
[2024-07-24 06:58] LABS: Anion Gap 5.1 mmol/L (3-11); BUN 8 mg/dL (7-18); CO2 28.9 mmol/L (21.0-32.0); Calcium 8.2 mg/dL (8.5-10.1); Chloride 109 mmol/L (98-107); Estimated GFR 101.42 (mL/min/1.73m2); Glucose 80 mg/dL (74-106); Potassium 3.5 mmol/L (3.5-5.1); Sodium 143 mmol/L (136-145)
[2024-07-24] MEDS: ACETAMINOPHEN 1,000 MG/100 ML BAG 400 MG IVPB (07:49)
[2024-07-24] MEDS: Normal Saline Flush 10 ML SYR IVP (07:49)
--- NOTE | 2024-07-24 08:05 | W.PM.PROGNOT ---
Date of Service Date of service: 07/24/24 Time of Service: 08:06 Assessment and Plan Assessment and plan (1) Acute appendicitis: Status: Acute Assessment and plan: POD #1 s/p laproscopic Appendectomy Tolerated clear liquid diet, will trial regular diet for breakfast this morning. Pain is well controlled. Encouraged activity OOB, ambulation and sitting in the chair. She will need a 2 week follow up with the surgical office Will d/c home later this morning. Subjective Subjective Interval history since last seen: Arrive with Neetu resting comfortably in bed. She states she is feeling well and eager to go home. She tolerated the clear liquids last night. She states that she normally follows a carnivore diet, so the options right now do not sounds appetizing. Exam Const General: cooperative, healthy appearing and comfortable Orientation: alert and oriented x3 Resp Effort & Inspection: normal respiratory effort, no audible wheezes and no cough GI Inspection: normal to inspection and non-distended Palpation: soft, no guarding and nontender Objective Last Vital Signs Temp 36.2 C L 07/23/24 19:46 Pulse 68 07/23/24 19:46 Resp 19 07/23/24 19:46 BP 101/55 L 07/23/24 19:46 Pulse Ox 98 07/23/24 19:46 Laboratory Results - last 24 hr 07/24/24 05:50 WBC 4.13 L RBC 3.95 Hgb 12.2 D Hct 37.3 MCV 94 MCH 30.9 MCHC 32.7 RDW 13.7 Plt Count 128 L MPV 10.6 Sodium 143 Potassium 3.5 Chloride 109 H Carbon Dioxide 28.9 Anion Gap 5.1 BUN 8 Creatinine 0.6 Est GFR (CKD-EPI 2020) 101.42 Glucose 80 Calcium 8.2 L Time Spent with Patient Time Spent with Patient: <25 minutes Time was spent: preparing to see the patient(eg.review tests), obtaining and/or reviewing separately otained hiistory and counseling the patient
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
--- NOTE | 2024-07-24 13:45 | PDOC.CMDIS ---
Date of service: 07/24/24 Time of Service: 13:45 LACE Index Scoring Tool Questions: Length of Stay (in days): 2 Was the patient admitted via the E.D.?: Yes E.D. Visits: 1 Answers: Total Score: 6 Risk of Readmission: Low Risk Care Management Discharge Plan Reason for Hospitalization: appendicitis Discharge Plan: Neetu will be discharged home with no new services. She will follow up with her PCP and surgeon and will transport with family. Patient/Family Education Needs: Review discharge instructions, discuss Ask Me [facility] Health Related Social Needs: No Data to Display
== END 2024-07-24 09:16 | disposition home or self-care (01) ==
LOC: ER 22:33 → MS 07-23 00:21
PROVIDERS: Surgery; Admitting Provider Surgery; Emergency Provider Student in an Organized Health Care Education/Training Program; PCP Family Medicine; Visit Provider Surgery
PROC: 0DTJ4ZZ Resection of Appendix, Percutaneous Endoscopic Approach (ICD-10-PCS; CPT 44970; principal; 2024-07-23 11:00)
DX: K35.30 Acute appendicitis with localized peritonitis, without perforation or gangrene (principal); R55 Syncope and collapse; K38.1 Appendicular concretions; I10 Essential (primary) hypertension; E78.9 Disorder of lipoprotein metabolism, unspecified; Z86.0101 Personal history of adenomatous and serrated colon polyps; Z87.891 Personal history of nicotine dependence; W18.39XA Other fall on same level, initial encounter; Y93.E1 Activity, personal bathing and showering
CPT/HCPCS: 44970; 36415; 36416; 71275; 74177; 80048; 80053; 82962; 83690; 85027; 93005; 96361; 96374; 96375; 99285; J1650; 83605; 83735; 83880; 84484; 85025; 85379; 88304; 93010; G0378; J0131; J0665; J1100; J1885; J2270; J2371; J2405; J2543; J2704; J3010; J3490

== ENCOUNTER 2025-04-19 00:53 | Outpatient (CLI) | payer BC, SELFPAY ==
[2025-04-19 14:17] LABS: ALT 42 U/L (14-59); AST 26 U/L (15-37); Albumin 3.4 g/dL (3.4-5.0); Alkaline Phosphatase 48 U/L (46-116); Anion Gap 12.3 mmol/L (3-11); BUN 13 mg/dL (7-18); Bilirubin, Total 0.7 mg/dL (0.2-1.0); CO2 25.7 mmol/L (21.0-32.0); Calcium 8.6 mg/dL (8.5-10.1); Chloride 103 mmol/L (98-107); Cholesterol 322 mg/dL (<200); Glucose 84 mg/dL (74-106); HDL Cholesterol 66 mg/dL (>or=50); Potassium 3.2 mmol/L (3.5-5.1); Sodium 141 mmol/L (136-145); Total Protein 6.7 g/dL (6.4-8.2)
== END 2025-04-19 00:54 | disposition home or self-care (01) ==
LOC: LOS 00:54
PROVIDERS: PCP Family Medicine; Visit Provider Family Medicine
DX: I10 Essential (primary) hypertension (principal)
CPT/HCPCS: 36415; 80053; 80061

== ENCOUNTER → 2025-05-10 01:52 | Outpatient (CLI) | payer BC, SELFPAY ==
--- NOTE | 2025-05-10 07:40 | DI.MAMMO_ITS ---
Exam(s) MAMMO SCREENING EXAM: MAMMO SCREENING CLINICAL HISTORY: screening, Z12.39 TECHNIQUE: Mammograms were interpreted according to the usual protocol including computer analysis with CAD system, tomosynthesis and C-view imaging. COMPARISON: 2015 - 2021 FINDINGS: The breasts are composed of scattered fibroglandular densities, Breast Density category B. No suspicious masses or suspicious microcalcifications are seen. No skin thickening or abnormal axillary lymph nodes are seen. There has been no significant change from prior exams. IMPRESSION: BI-RADS Category 1, Negative mammogram Yearly screening mammography is recommended. Breast Density - Category B - There are scattered areas of fibroglandular density. Breast density Category C or D implies that the patient has dense breast tissue. Dense breast tissue can make it harder to find cancer on a mammogram. Dense breast tissue is also associated with an increased risk of breast cancer. This information about the result of the mammogram report was provided to the patient to raise their awareness. Use this report when you speak with the patient about their risks for breast cancer, which includes their family history. At that time, you may recommend additional screening tests (Ultrasound or MRI) as these tests may add significant information. A negative radiographic report should not delay biopsy if a dominant or clinically suspicious mass is present. Up to ten percent of cancers are not identified on mammography. A negative report may reinforce clinical impression. Adenosis and dense breasts may obscure an underlying neoplasm. False positive reports average 6 to 10%. Patient will receive a letter notifying them of these results.
--- NOTE | 2025-05-10 08:41 | DI.DEXA_ITS ---
Exam(s) XR DEXA BONE DENSITY W/WO TERESA EXAM: XR DEXA BONE DENSITY W/WO TERESA CLINICAL HISTORY: post menopausal, asymptomatic menopausal state, Z78.0 TECHNIQUE: [email or web address] C densitometer analysis of left hip, lumbar spine and left forearm. Lateral survey image of the thoracic and lumbar spine. COMPARISON: No exams were available for comparison FINDINGS: Lateral view of the thoracic and lumbar spine shows no evidence of compression fractures. Bone mineral density measurements of the lumbar spine correspond to a total T- score of -1.2, in the osteopenic range. Bone mineral density measurements of the left hip correspond to a total T-score of -1.7. The femoral neck T-score is negative 2.0, in the osteopenic range.. Theleft forearm bone mineral density measurements correspond to a T-score of the distal 3rd of -2.0, in the osteopenic range.. IMPRESSION: Osteopenia of the spine, hip and forearm.
== END ==
LOC: DI 01:54
PROVIDERS: PCP Family Medicine; Visit Provider Family Medicine
DX: Z78.0 Asymptomatic menopausal state (principal); Z12.31 Encounter for screening mammogram for malignant neoplasm of breast; M85.89 Other specified disorders of bone density and structure, multiple sites; R92.323 Mammographic fibroglandular density, bilateral breasts
CPT/HCPCS: 77063; 77067; 77080